=== PATIENT | male | born 1980 | race Caucasian/White ===

== ENCOUNTER 2016-06-28 19:11 | Emergency (ER) | payer MEDICAID ==
[~2016-06-28] VITALS: Ht 152.4 cm; Wt 66.7 kg
[2016-06-28 21:14] LABS: BASOPHIL % 0.3 % (0-2)
[2016-06-28 21:23] LABS: CALCIUM 9.3 mg/dL (8.5-10.1); CARBON DIOXIDE 29.9 mmol/L (21-32); CHLORIDE SERUM 100 mmol/L (98-107); CREATININE SERUM 0.9 mg/dL (0.7-1.3); GFR1 > 60 mL/min; GLUCOSE SERUM 124 mg/dL (74-106); POTASSIUM SERUM 3.3 mmol/L (3.5-5.1); SODIUM SERUM 139 mmol/L (136-145)
[2016-06-28 21:28] LABS: ALBUMIN 4.4 g/dL (3.4-5.0); ALKALINE PHOSPHATASE 98 U/L (46-116); ALT/SGPT 273 U/L (16-63); AST/SGOT 197 U/L (15-37); BILIRUBIN TOTAL 1.2 mg/dL (0.20-1.00); PLATELET COUNT 115 x10^3mcL (130-400)
[2016-06-28 21:29] LABS: TOTAL PROTEIN, SERUM 8.5 g/dL (6.4-8.2)
[2016-06-28 23:00] VITALS: BP 142/94
== END 2016-06-28 23:00 | disposition home or self-care (01) ==
LOC: ED 19:11 → EDBD 19:11 → ED 23:00
PROVIDERS: Emergency Medicine
DX: R51 Headache (principal); R53.1 Weakness
CPT/HCPCS: G0480; J2405; J3411; J3475; J3490; J7030; Q0092

== ENCOUNTER 2016-09-30 00:29 | Emergency (ER) | payer MEDICAID ==
[2016-09-30 01:44] LABS: RED CELL DISTRIBUTION WIDTH 14.3 % (11.5-14.5)
[2016-09-30 01:49] LABS: CALCIUM 8.9 mg/dL (8.5-10.1); CARBON DIOXIDE 23.6 mmol/L (21-32); CHLORIDE SERUM 105 mmol/L (98-107); CREATININE SERUM 0.7 mg/dL (0.7-1.3); GFR1 > 60 mL/min; GLUCOSE SERUM 123 mg/dL (74-106); POTASSIUM SERUM 3.4 mmol/L (3.5-5.1); SODIUM SERUM 142 mmol/L (136-145)
[2016-09-30 01:51] LABS: BASOPHIL % 0 % (0-2); PLATELET COUNT 88 x10^3mcL (130-400)
[2016-09-30 01:54] LABS: ALKALINE PHOSPHATASE 74 U/L (46-116); ALT/SGPT 114 U/L (16-63); AST/SGOT 86 U/L (15-37); BILIRUBIN TOTAL 0.75 mg/dL (0.20-1.00)
[2016-09-30 01:55] LABS: TOTAL PROTEIN, SERUM 8.3 g/dL (6.4-8.2)
[2016-09-30 04:30] VITALS: BP 129/77
== END 2016-09-30 04:30 | disposition home or self-care (01) ==
LOC: ED 00:29
PROVIDERS: Emergency Medicine
DX: F10.10 Alcohol abuse, uncomplicated (principal)
CPT/HCPCS: G0480; J2060; J2405; J3411; J3475; J3490; J7030

== ENCOUNTER 2017-03-01 02:51 | Emergency (ER) | payer MEDICAID ==
[~2017-03-01] VITALS: Ht 152.4 cm; Wt 63.5 kg
[2017-03-01 02:59] VITALS: Ht 152.4 cm; Wt 63.5 kg
[2017-03-01 04:06] VITALS: BP 145/93
== END 2017-03-01 04:06 | disposition home or self-care (01) ==
LOC: ED 02:51
DX: G44.209 Tension-type headache, unspecified, not intractable (principal); F10.129 Alcohol abuse with intoxication, unspecified
CPT/HCPCS: J1885; Q0162

== ENCOUNTER 2017-09-20 17:21 | Emergency (ER) | payer MEDICAID ==
[~2017-09-20] VITALS: Ht 152.4 cm; Wt 61.2 kg
[2017-09-20 17:24] VITALS: Ht 152.4 cm; Wt 61.2 kg
[2017-09-20 18:13] LABS: BASOPHIL % 0.5 % (0-2)
[2017-09-20 18:14] LABS: PLATELET COUNT 123 x10^3mcL (130-400); RED CELL DISTRIBUTION WIDTH 14.8 % (11.5-14.5)
[2017-09-20 18:38] LABS: CALCIUM 8.5 mg/dL (8.5-10.1); CARBON DIOXIDE 27.6 mmol/L (21-32); CHLORIDE SERUM 105 mmol/L (98-107); CREATININE SERUM 0.7 mg/dL (0.7-1.3); GFR1 > 60 mL/min; GLUCOSE SERUM 104 mg/dL (74-106); POTASSIUM SERUM 3.7 mmol/L (3.5-5.1); SODIUM SERUM 142 mmol/L (136-145)
[2017-09-20 18:43] LABS: ALKALINE PHOSPHATASE 71 U/L (46-116); ALT/SGPT 138 U/L (16-63); AST/SGOT 68 U/L (15-37); BILIRUBIN TOTAL 0.59 mg/dL (0.20-1.00); TOTAL PROTEIN, SERUM 7.9 g/dL (6.4-8.2)
[2017-09-20 20:28] VITALS: BP 123/75
== END 2017-09-20 20:28 | disposition home or self-care (01) ==
LOC: ED 17:21
PROVIDERS: Emergency Medicine
DX: G44.209 Tension-type headache, unspecified, not intractable (principal); F10.20 Alcohol dependence, uncomplicated
CPT/HCPCS: 36415; G0480; J1885; J8597

== ENCOUNTER 2018-02-10 05:29 | Emergency (ER) | payer MEDICAID ==
[~2018-02-10] VITALS: Ht 149.9 cm; Wt 60.8 kg
[2018-02-10 06:46] LABS: BASOPHIL % 0.2 % (0-2); RED CELL DISTRIBUTION WIDTH 12.6 % (11.5-14.5)
[2018-02-10 06:50] LABS: PLATELET COUNT 85 x10^3mcL (130-400)
[2018-02-10 07:00] LABS: CALCIUM 8.7 mg/dL (8.5-10.1); CARBON DIOXIDE 29.9 mmol/L (21-32); CHLORIDE SERUM 101 mmol/L (98-107); CREATININE SERUM 0.7 mg/dL (0.7-1.3); GFR1 > 60 mL/min; GLUCOSE SERUM 102 mg/dL (74-106); SODIUM SERUM 141 mmol/L (136-145)
[2018-02-10 11:11] VITALS: BP 140/75
== END 2018-02-10 11:11 | disposition home or self-care (01) ==
LOC: ED 05:29
PROVIDERS: Emergency Medicine
DX: R51 Headache (principal); R11.2 Nausea with vomiting, unspecified; F10.10 Alcohol abuse, uncomplicated
CPT/HCPCS: J1200; J1885; J2765; J3411; J3475; J3490; J7030

== ENCOUNTER 2018-03-15 01:27 | Inpatient (IN) | payer MEDICAID ==
[~2018-03-15] VITALS: Ht 167.6 cm; Wt 60.5 kg
[2018-03-15 01:32] VITALS: Ht 167.6 cm; Wt 60.5 kg
--- NOTE | 2018-03-15 01:38 | NUR ---
EKG IN PROGRESS
--- NOTE | 2018-03-15 02:15 | NUR ---
PT PRESENTS TO ER TODAY WITH C/O OF CHEST PAIN. PT STATES CP IS ON THE L SIDE OF HIS CHEST AND RATES IT 10/10. PT ALSO COMPLAINING OF DIZZINESS. PT DENIES AND SOB. PTS LUNG SOUNDS CLEAR BILATERALLY IN ALL LOBES ON ASCULTATION. PT MALAGASY SPEAKING ONLY. FAMILY AT BEDSIDE. NO ACUTE DISTRESS NOTED.
[2018-03-15 03:27] LABS: BASOPHIL % 0.4 % (0-2); RED CELL DISTRIBUTION WIDTH 13.4 % (11.5-14.5)
[2018-03-15 03:28] LABS: PLATELET COUNT 100 x10^3mcL (130-400)
--- NOTE | 2018-03-15 03:35 | NUR ---
PT APPEARS TO BE RESTING COMFORTABLY. PTS VITALS ARE WNL. NO ACUTE DISTRESS NOTED.
[2018-03-15 03:46] LABS: CALCIUM 8.7 mg/dL (8.5-10.1); CARBON DIOXIDE 29.7 mmol/L (21-32); CHLORIDE SERUM 104 mmol/L (98-107); CREATININE SERUM 0.8 mg/dL (0.7-1.3); GFR1 > 60 mL/min; GLUCOSE SERUM 126 mg/dL (74-106); POTASSIUM SERUM 3.8 mmol/L (3.5-5.1); SODIUM SERUM 140 mmol/L (136-145)
[2018-03-15 03:50] LABS: ALKALINE PHOSPHATASE 92 U/L (46-116); ALT/SGPT 35 U/L (16-63); AST/SGOT 19 U/L (15-37); BILIRUBIN TOTAL 0.46 mg/dL (0.20-1.00); TOTAL PROTEIN, SERUM 7.8 g/dL (6.4-8.2)
[2018-03-15 03:50] LABS: AMPHETAMINE QUAL UR NONE DETECTED (See below)
--- NOTE | 2018-03-15 04:31 | NUR ---
DR MOELLER AT BEDSIDE FOR MSE.
[2018-03-15 05:52] LABS: PHOSPHOROUS 3.7 mg/dL (2.5-4.9)
[2018-03-15 05:57] LABS: T3 TOTAL 0.98 ng/mL
[2018-03-15 06:00] LABS: FREE T4 0.95 ng/dL (0.76-1.46); FREE THYROXINE INDEX 2.9 ug/dL (1.4-4.5); T4(THYROXINE) 8.1 ug/dL (4.7-13.3)
--- NOTE | 2018-03-15 06:04 | NUR ---
REPORT GIVEN TO MARINA MOJICA TO ASSUME CARE OF PT.
--- NOTE | 2018-03-15 06:12 | NUR ---
PT APPEARS TO BE RESTING COMFORTABLY. PTS VITALS ARE WNL. PT IS NOT REPORTING ANY PAIN AT THIS TIME. NO ACUTE DISTRESS NOTED.
--- NOTE | 2018-03-15 07:05 | NUR ---
RCD REPORT FROM YUNIOR GRAY. PATIENT JUST ADMITTED TO THE UNIT AT 0700 WITH COMPLAINT OF CHEST PAIN, RCD ASPIRIN IN EMERGENCY DPT PER REPORT. PATIENT REPORTS HE HAS "POQUITO" CHEST PAIN WHILE PUSHING ON LEFT CHEST, BY REPORT WITH EXERTION. TELE 18, NSR, RATE IN 80s. DENIES SHORTNESS OF BREATH. O2 SAT 98% ON ROOM AIR. DENIES DIZZINESS, A/OX4. ORIENTED TO ROOM, CALL LIGHT, TELEVISION. DISCUSSED NEED TO USE CALL LIGHT TO COMMUNICATE NEEDS. PATIENT VERBALIZES AND DEMONSTRATES UNDERSTANDING. WILL MONITOR.
[2018-03-15 08:04] VITALS: BP 129/92
[2018-03-15 09:51] VITALS: BP 135/85
--- NOTE | 2018-03-15 09:56 | NUR ---
MEDICATIONS GIVEN PER MAR. PATIENT REFUSES COLACE HE HAD TWO BMs THIS MORNING. PATIENT REPORTS NO CHEST PAIN AT THIS TIME. FAMILY AT BEDSIDE. NO OTHER NEEDS AT THIS TIME.
[2018-03-15 10:25] LABS: microscopic required? NO
--- NOTE | 2018-03-15 11:05 | NUR ---
ROUNDS WITH DR. DEAN, MEDICAL TEAM, [facility] NURSE, ATTDG NURSE. PATIENT DENIES ANY FURTHER CHEST PAIN. EXPLAINED TO PATIENT NEED TO REPEAT BLOOD TEST FOR CARDIAC ENZYMES, IF NORMAL PATIENT MAY BE DISCHARGED HOME LATER TODAY. IF CHEST PAIN RETURNS AFTER DISCHARGE PATIENT TO SEEK CARDIOLOGY CARE OUTPATIENT. PATIENT AND VERBALIZE UNDERSTANDING.
[2018-03-15 11:19] LABS: UA SPECIFIC GRAVITY 1.015 (1.005-1.035); urine erythrocyte NEGATIVE (NEGATIVE)
[2018-03-15 12:19] VITALS: BP 109/70
--- NOTE | 2018-03-15 13:33 | NUR ---
PATIENT DENIES CHEST PAIN AT THIS TIME. NO NEEDS.
--- NOTE | 2018-03-15 14:50 | NUR ---
PATIENT ASLEEP, REGULAR RESPS. WILL MONITOR.
--- NOTE | 2018-03-15 16:31 | NUR ---
DR. DIXON IN TO DISCUSS WITH PATIENT AND PLAN FOR DISCHARGE TODAY. PATIENT DENIES ANY FURTHER CHEST PAIN AND IS FEELING WELL. DOCTOR EXPLAINED TO PATIENT THAT EKG IS NORMAL, CARDIAC ENZYMES ARE NORMAL AND THAT HIS CHEST PAIN DOES NOT APPEAR TO BE RELATED TO A PROBLEM WITH THE HEART. PATIENT'S MENTIONS THIS CHEST PAIN CAN OCCUR WHEN HE IS UPSET. DOCTOR RECOMMENDED PATIENT FOLLOW UP WITH PRIMARY CARE OUTPATIENT. PATIENT AND AGREED. ALL QUESTIONS ANSWERED. PLAN FOR DISCHARGE TODAY.
[2018-03-15 17:19] VITALS: BP 125/77
[2018-03-15 17:24] VITALS: BP 125/77
--- NOTE | 2018-03-15 17:44 | NUR ---
REVIEWED DISCHARGE PAPERWORK WITH PATIENT AND . VERBAL AND WRITTEN INSTRUCTIONS PROVIDED IN CUB[place] AND IN [place]UBA. IV TO LAC REMOVED, SITE WITHOUT COMPLICATIONS. TELE 18 REMOVED AND RETURNED TO TELEMETRY. PATIENT AND DENY HAVING ANY FURTHER QUESTIONS. PATIENT EATING DINNER. ADVISED TO CALL FOR ASSISTANCE WHEN READY TO LEAVE.
--- NOTE | 2018-03-15 17:49 | NUR ---
PATIENT ESCORTED FROM UNIT, AMBULATORY, WITH FAMILY, HAS ALL HIS BELONGINGS. NO DISTRESS NOTED, NO CHEST PAIN AT THIS TIME. REINFORCED TO PATIENT TO FOLLOWUP WITH PCP TOMORROW. PATIENT AGREES.
== END 2018-03-15 17:47 | disposition home or self-care (01) | DRG 243 ==
LOC: ED 01:27 → DU 05:00
PROVIDERS: Emergency Medicine; ADMIT Family Medicine
DX: K21.9 Gastro-esophageal reflux disease without esophagitis (principal); D69.6 Thrombocytopenia, unspecified; M94.0 Chondrocostal junction syndrome [Tietze]; Z68.25 Body mass index [BMI] 25.0-25.9, adult
CPT/HCPCS: 83880; 84439; 85378; G0480; Q0092

== ENCOUNTER 2018-08-02 21:53 | Emergency (ER) | payer MEDICAID ==
[~2018-08-02] VITALS: Ht 152.4 cm; Wt 61.7 kg
[2018-08-02 21:56] VITALS: Ht 152.4 cm; Wt 61.7 kg
[2018-08-03 00:25] LABS: BASOPHIL % 0.2 % (0-2); PLATELET COUNT 95 x10^3mcL (130-400); RED CELL DISTRIBUTION WIDTH 12.5 % (11.5-14.5)
[2018-08-03 00:49] LABS: CALCIUM 9.2 mg/dL (8.5-10.1); CARBON DIOXIDE 27.5 mmol/L (21-32); CHLORIDE SERUM 101 mmol/L (98-107); CREATININE SERUM 0.5 mg/dL (0.7-1.3); GFR1 > 60 mL/min; GLUCOSE SERUM 105 mg/dL (74-106); POTASSIUM SERUM 4.6 mmol/L (3.5-5.1); SODIUM SERUM 140 mmol/L (136-145)
[2018-08-03 00:54] LABS: ALBUMIN 4.1 g/dL (3.4-5.0); ALKALINE PHOSPHATASE 74 U/L (46-116); ALT/SGPT 77 U/L (16-63); AST/SGOT 65 U/L (15-37); BILIRUBIN TOTAL 0.94 mg/dL (0.20-1.00); TOTAL PROTEIN, SERUM 8.2 g/dL (6.4-8.2)
[2018-08-03 01:15] VITALS: BP 147/81
== END 2018-08-03 01:15 | disposition home or self-care (01) ==
LOC: ED 21:53
PROVIDERS: Emergency Medicine
DX: G44.209 Tension-type headache, unspecified, not intractable (principal); F10.20 Alcohol dependence, uncomplicated
CPT/HCPCS: 36415; J1885

== ENCOUNTER 2018-08-29 03:49 | Inpatient (IN) | payer MEDICAID ==
[~2018-08-29] VITALS: Ht 157.5 cm; Wt 59.4 kg
[2018-08-29 03:57] VITALS: Ht 157.5 cm; Wt 59.4 kg
--- NOTE | 2018-08-29 04:10 | NUR ---
PT PRESENTED TO ED FOR HEADACHE X 3 DAYS, NAUSEA AND VOMITING X 2 DAYS. PT FAMILY STATES "2 WEEKS OF DRINKING BEER" WITH LAST DRINK "AT 2 AM", +ETOH. PT IS CALM AND COOPERATIVE, FOLLOWS COMMANDS.PT OBSERVED RESTING COMFORTABLY ON GURNEY. CM AND [address]. PT AWAKE AND ALERT IN NAD. BREATHING EVEN AND UNLABORED. FAMILY AT BEDSIDE. AWAITING MSE. WILL CONTINUE TO MONITOR.
--- NOTE | 2018-08-29 04:19 | NUR ---
PT GIVEN URINAL AT BEDSIDE TO PROVIDE URINE SAMPLE.
--- NOTE | 2018-08-29 04:23 | NUR ---
PT UNABLE TO PROVIDE URINE AT THIS TIME.
[2018-08-29 04:33] LABS: BASOPHIL % 0.3 % (0-2); RED CELL DISTRIBUTION WIDTH 13.9 % (11.5-14.5)
[2018-08-29 04:34] LABS: PLATELET COUNT 123 x10^3mcL (130-400)
--- NOTE | 2018-08-29 04:35 | NUR ---
DR MOELLER AT BEDSIDE FOR MSE.
--- NOTE | 2018-08-29 04:45 | NUR ---
OBSERVED BILATERAL LEG TREMORS AT BEDSIDE. DR MOELLER MADE AWARE. PER DR MOELLER GIVE 1 MG ATIVAN IVP AT THIS TIME. PT MEDICATED PER MD ORDERS. SEE EMAR FOR DETAILS. WILL CONTINUE TO MONITOR.
[2018-08-29 04:52] LABS: CALCIUM 8.7 mg/dL (8.5-10.1); CARBON DIOXIDE 27.8 mmol/L (21-32); CHLORIDE SERUM 107 mmol/L (98-107); CREATININE SERUM 0.7 mg/dL (0.7-1.3); GFR1 > 60 mL/min; GLUCOSE SERUM 114 mg/dL (74-106); POTASSIUM SERUM 4.2 mmol/L (3.5-5.1); SODIUM SERUM 147 mmol/L (136-145)
[2018-08-29 05:05] LABS: ALBUMIN 4.2 g/dL (3.4-5.0); ALKALINE PHOSPHATASE 79 U/L (46-116); ALT/SGPT 100 U/L (16-63); AST/SGOT 57 U/L (15-37); BILIRUBIN TOTAL 0.75 mg/dL (0.20-1.00); FREE T4 0.96 ng/dL (0.76-1.46); LIPASE 235 IU/L (73-393); TOTAL PROTEIN, SERUM 8.1 g/dL (6.4-8.2)
--- NOTE | 2018-08-29 05:41 | NUR ---
PT RESTING ON GURNEY IN NAD. BREATHING EVEN AND UNLABORED. PT EASILY AROUSABLE. ASKED PT TO PROVIDE URINE SAMPLE AT THIS TIME AND PT STATED "NO". DR MOELLER MADE AWARE. CM AND [address] FAMILY AT BEDSIDE. WILL CONTINUE TO MONITOR.
--- NOTE | 2018-08-29 05:48 | NUR ---
XRAY AT BEDSIDE.
--- NOTE | 2018-08-29 06:08 | NUR ---
REPORT CALLED TO DUONG MOJICA.
--- NOTE | 2018-08-29 06:15 | NUR ---
PT TRANSFERED TO BED 251B AT THIS TIME. PT APPEARS SLEEPY BUT EASILY AROUSABLE . PT IN NAD. BREATHING EVEN AND UNLABORED. PT TRANSFERED VIA GURNEY ACCOMPANIED BY MYSELF RN AND CLEM EMT. IV REMAINS PATENT WITH NO SIGNS OF INFILTRATION.
[2018-08-29 06:26] VITALS: BP 120/78
--- NOTE | 2018-08-29 06:29 | NUR ---
RECEIVED PT FROM ED. PT AOX4. DENIES DEL TORO/DIZZINESS AT THIS TIME. PLACED ON TELE #32, SR WITH BBB. DENIES CP/PRESSURE. IV TO RAC, INTACT AND PATENT. BED IN LOWEST POSITION. CALL LIGHT WITHIN REACH. WILL CONTINUE TO MONITOR.
[2018-08-29 06:42] LABS: MAGNESIUM 2.1 mg/dL (1.8-2.4); PHOSPHOROUS 4.4 mg/dL (2.5-4.9)
[2018-08-29 06:54] LABS: CHOLESTEROL/HDL RATIO 2.2
[2018-08-29 06:55] LABS: microscopic required? YES; urine erythrocyte NEGATIVE (NEGATIVE)
--- NOTE | 2018-08-29 07:10 | NUR ---
RECEIVED BEDSIDE REPORT FROM WET MACHINE TENDER NURSE AT THIS TIME. PATIENT RESTING COMFORTABLY IN BED. NO APPARENT DISTRESS OR DISCOMFORT NOTED. BREATHING EVEN AND UNLABORED. PATIENT DENIES SHORTNESS OF BREATH. PATIENT DENIES CHEST PAIN/PRESSURE. NO APPARENT DISTRESS OR DISCOMFORT. ALL QUESTIONS AND CONCERNS ADDRESSED. ALL NEEDS ATTENDED TO SZ PRECAUTIONS IN PLACE FOR SAFETY. WILL CONTINUE TO MONITOR
[2018-08-29 08:13] LABS: AMPHETAMINE QUAL UR NONE DETECTED (See below)
--- NOTE | 2018-08-29 08:30 | NUR ---
REPORT TO PHYSICIAN PRESIDENT WENDY PATIENT LACTIC ACID 2.7 AT THIS TIME. PER PHYSICIAN PRESIDENT SHE WILL INPUT ORDERS. AWAITING ORDERS AT THIS TIME. WILL PROCEED ORDERED. WILL CONTINUE TO MONITOR
[2018-08-29 09:28] VITALS: BP 136/80
--- NOTE | 2018-08-29 10:20 | NUR ---
ALL MORNING MEDICATIONS ADMINISTERED. PATIENT TOLERATED MEDICATION WELL. NO ADVERSE EFFECTS NOTED. ALL NEEDS ATTENDED TO. WILL CONTINUE TO MONITOR
--- NOTE | 2018-08-29 10:32 | NUR ---
SPOKE TO RON NGUYEN REGARDING DUPLICATE ORDER FOR LACTIC ACID. PER WENDY TELEPHONE ORDER TO D/C DUPLICATE LACTIC ORDER. TELEPHONE ORDER READ BACK, CONFIRMED, AND FOLLOWED THROUGH. ALL NEEDS ATTENDED TO. WILL CONTINUE TO MONITOR
--- NOTE | 2018-08-29 10:56 | NUR ---
PATIENT C/O 5/10 HEADACHE AT THIS TIME. MEDICATED WITH TYLENOL PRN. PATIENT TOLERATED WELL. NO APPARENT DISTRESS OR DISCOMFORT NOTED. ALL NEEDS ATTENDED TO. WILL CONTINUE TO MONITOR
--- NOTE | 2018-08-29 11:11 | NUR ---
SPOKE TO COMMERCIAL LINES MANAGER WENDY AT THIS TIME TO REPORT PATIENT LACTIC ACID 2.4. NO NEW ORDERS. ALL NEEDS ATTENDED TO. WILL CONTINUE TO MONITOR
--- NOTE | 2018-08-29 11:34 | NUR ---
PATIENT C/O BEING ANXIOUS AT THIS TIME. MEDICATED WITH ATIVAN PRN. PATIENT TOLERATED WELL. NO APPARENT DISTRESS OR DISCOMFORT NOTED. ALL NEEDS ATTENDED TO. WILL CONTINUE TO MONITOR
[2018-08-29 13:01] VITALS: BP 117/66
[2018-08-29 16:48] VITALS: BP 125/72
--- NOTE | 2018-08-29 17:05 | NUR ---
Discount pharmacy card and list to low cost medical clinics given to patient by July Zamora.
--- NOTE | 2018-08-29 18:06 | NUR ---
PATIENT C/O 5/10 HEADACHE AT THIS TIME. PATIENT MEDICATED WITH NORCO PRN. PATIENT TOLERATED WELL. NO ADVERSE EFFECT NOTED. ALL NEEDS ATTENDED TO. WILL CONTINUE TO MONITOR
--- NOTE | 2018-08-29 19:13 | NUR ---
PATIENT RESTING COMFORTABLY IN BED AT THIS TIME. NO APPARENT DISTRESS OR DISCOMFORT NOTED. IV TO THE PATENT AND INTACT. ALL QUESTIONS AND CONCERNS ADDRESSED. SAFETY PRECAUTIONS MAINTAINED. ALL NEEDS ATTENDED TO. WILL ENDORSE ALL CARE TO GLASS CARRIER NURSE
--- NOTE | 2018-08-29 20:17 | NUR ---
PT. AWAKE, ALERT, ORIENTED X4. STATED THAT HE IS VERY SLEEPY. ABLE TO FOLLOW COMMANDS. SPEECH SLOW BUT CLEAR. CONVERSATION APPROPRIATE.BREATH SOUNDS CLEAR THROUGHOUT LUNG SIDHU, RESP. EVEN, UNLABORED. NO SOB NOTED. PT. ON RA. NSR ON TELE #32. DENIES CHESTPAIN OR DISCOMFORT. NO EDEMA NOTED TO EXTREMITIES. FACE APPEARS FLUSHED AND SLIGHTLY RED. ABD. SOFT AND ROUND, BOWEL SOUNDS ACTIVE. IVF INFUSING WELL, SITE WNL. BED LOW LAYING, ALARM ON. PT. INSTRUCTED TO CALL FOR ASSIST OOB. REPORTED C/O DIZZINESS EARLIER TODAY.
[2018-08-29 20:57] VITALS: BP 138/77
--- NOTE | 2018-08-30 01:14 | NUR ---
PT. RESTING QUIETLY, EYES CLOSED. APPEARS TO BE SLEEPING. NO SEIZURE ACTIVITY OR HALLUCINATIONS NOTED THUS FAR. IVF INFUSING WELL. CALL LIGHT WITHIN REACH.
[2018-08-30 05:49] VITALS: BP 142/90
[2018-08-30 06:29] LABS: BASOPHIL % 0.3 % (0-2); RED CELL DISTRIBUTION WIDTH 13.5 % (11.5-14.5)
--- NOTE | 2018-08-30 06:29 | NUR ---
PT. C/O HEADACHE EARLIER THIS MORNING AFTER 0400. RECEIVED PRN TYLENOL AND STATED RELIEF. DENIES ANY DIZZINESS AT THIS TIME. NO SEIZURE ACTIVITIES THROUGHOUT THE NIGHT OR HALLUCINATIONS. PT. REMAINS COOPERATIVE. IVF INFUSING WELL, SITE INTACT. CALL LIGHT WITHIN REACH. WILL ENDORSE PT. CARE TO INCOMING NURSE.
[2018-08-30 06:31] LABS: CALCIUM 8.6 mg/dL (8.5-10.1); CARBON DIOXIDE 32.9 mmol/L (21-32); CHLORIDE SERUM 102 mmol/L (98-107); CREATININE SERUM 0.6 mg/dL (0.7-1.3); GFR1 > 60 mL/min; GLUCOSE SERUM 109 mg/dL (74-106); MAGNESIUM 2.1 mg/dL (1.8-2.4); PHOSPHOROUS 3.5 mg/dL (2.5-4.9); POTASSIUM SERUM 3.7 mmol/L (3.5-5.1); SODIUM SERUM 140 mmol/L (136-145)
[2018-08-30 06:50] LABS: PLATELET COUNT 104 x10^3mcL (130-400)
--- NOTE | 2018-08-30 07:10 | NUR ---
RECEIVED PT FROM VOCATIONAL AIDE. PT AWAKE, ALERT. A/OX4. PT ON ROOM AIR WITH NO RESP DISTRESS NOTED. LUNGS CTA. IV ACCESS RAC C/D/I INFUSING D51/2NS AT 125ML/HR. PERIPHERAL PULSES PALPABLE, NO EDEMA NOTED. PT COMPLAINS OF DIZZINESS. DENIES PAIN AT THIS TIME. PT ON TELE #32, DENIES CHEST PAIN. PT NOTED TO HAVE GENERALIZED WEAKNESS. SEIZURE PRECAUTIONS. SAFETY MESAURES IN PLACE, BED LOW AND LOCKED. PT INSTRUCTED TO USE CALL LIGHT FOR ASSISTANCE.
[2018-08-30 08:52] VITALS: BP 139/83
--- NOTE | 2018-08-30 10:30 | NUR ---
NO ACUTE DISTRESS OR DISCOMFORT NOTED AT THIS TIME. VSS
[2018-08-30 12:44] VITALS: BP 128/83
--- NOTE | 2018-08-30 13:43 | NUR ---
PT RESTING WITH NO DISCOMFORT NOTED. PT DENIES DIZZINESS AT THIS TIME. ALL NEEDS MET. SAFETY MEASURES MAINTAINED.
--- NOTE | 2018-08-30 17:00 | NUR ---
PT RESTING IN BED. DENIES DIZZINESS, NAUSEA OR PAIN AT THIS TIME. ALL NEEDS MET. SAFETY MAINTAINED. CALL LIGHT WITHIN REACH.
[2018-08-30 17:01] VITALS: BP 124/84
--- NOTE | 2018-08-30 18:47 | NUR ---
PT STABLE AT THIS TIME. ALL NEEDS TENDED TO THROUGHOUT SHIFT. NO ACUTE DISTRESS OR DISCOMFORT NOTED AT THIS TIME. WILL CONTINUE TO MONITOR AND ENDORSE CARE TO ACCOUNT MANAGER EMPLOYEE BENEFITS.
--- NOTE | 2018-08-30 19:35 | NUR ---
PT. AWAKE, ALERT, ORIENTED X4. DENIES HEADACHE OR DIZZINESS. BREATH SOUNDS CLEAR THROUGHOUT LUNG SIDHU. RESP. EVEN, UNLABORED. NO SOB NOTED. PT. ON RA. ABD. SOFT AND ROUND, BOWEL SOUNDS ACTIVE. PT. ON SEIZURE/ETOH PRECAUTION. NO EDEMA NOTED TO EXTREMITIES. PEDAL PULSES STRONG MIRA. IVF D5 1/2 INFUSING WELL AT 125CC/HR, SITE INTACT. PT. NSR ON MONITOR 32. CALL LIGHT WITHIN REACH.
[2018-08-30 21:11] VITALS: BP 131/82
--- NOTE | 2018-08-31 01:38 | NUR ---
PT. SLEEPING AT THIS TIME. NO SEIZURE ACTIVITY NOTED THUS FAR. NO NOTED TREMORS THUS FAR. IVF INFUSING WELL. CALL LIGHT WITHIN REACH.
[2018-08-31 05:32] VITALS: BP 124/75
[2018-08-31 06:30] LABS: CALCIUM 9.1 mg/dL (8.5-10.1); CARBON DIOXIDE 30.7 mmol/L (21-32); CHLORIDE SERUM 103 mmol/L (98-107); CREATININE SERUM 0.8 mg/dL (0.7-1.3); GFR1 > 60 mL/min; GLUCOSE SERUM 99 mg/dL (74-106); SODIUM SERUM 141 mmol/L (136-145)
[2018-08-31 06:33] LABS: BASOPHIL % 0.2 % (0-2); RED CELL DISTRIBUTION WIDTH 13.7 % (11.5-14.5)
--- NOTE | 2018-08-31 06:33 | NUR ---
PT. AWAKE, SITTING UP IN BED. HAD UNEVENTFUL NIGHT. BUT C/O HEADACHE THIS MORNING. PRN TYLENOL GIVEN ORDERED. NO SEIZURE ACTIVITY OR TREMORS NOTED THROUGHOUT THE NIGHT. IVF INFUSING WELL. CALL LIGHT WITHIN REACH. WILL ENDORSE PT. CARE TO INCOMING NURSE.
[2018-08-31 06:38] LABS: PLATELET COUNT 85 x10^3mcL (130-400)
--- NOTE | 2018-08-31 07:06 | NUR ---
RECEIVED PT FROM RAILROAD WORKER NURSE. PT RESTING IN BED, AOX4, RESP E/U ON RA. NO ACUTE DISTRESS NOTED. ON TELE 32 SHOWING NSR, HR: 67. IV TO RAC W/ NO SIGNS OF INFILTRATION, IVF INFUSING WELL. BED IN LOWEST POSITION AND CALL LIGHT WITHIN REACH. WILL CONTINUE TO MONITOR.
[2018-08-31 09:01] VITALS: BP 106/68
[2018-08-31 11:10] VITALS: BP 106/68
--- NOTE | 2018-08-31 12:50 | NUR ---
PT DISHCARGED, REVIEWED VISIT SUMMARY AND EDUCATIONAL PACKET W/ PT. PT AOX4, RESP E/U ON RA, VS STABLE, DENIES PAIN, HEADACHE, DIZZINESS OR N/V. IV REMOVED, CATH INTACT, GAUZE DRESSING APPLIED. PT AMBULATORY TO DISCHARGE OFFICE ESCORTED BY CHELSEA HINES W/ NO ACUTE INCIDENCE.
== END 2018-08-31 12:48 | disposition home or self-care (01) | DRG 775 ==
LOC: ED 03:49 → DU 05:10
PROVIDERS: Emergency Medicine; General Practice; ADMIT Internal Medicine
DX: F10.239 Alcohol dependence with withdrawal, unspecified (principal); F10.229 Alcohol dependence with intoxication, unspecified; E44.0 Moderate protein-calorie malnutrition; N39.0 Urinary tract infection, site not specified
CPT/HCPCS: 84439; G0378; G0480; J2060; J2543; J3370; J7030; Q0092

== ENCOUNTER 2018-09-18 12:17 | Emergency (ER) | payer MEDICAID ==
[~2018-09-18] VITALS: Ht 157.5 cm; Wt 59.9 kg
[2018-09-18 12:28] VITALS: Ht 157.5 cm; Wt 59.9 kg
[2018-09-18 14:02] VITALS: BP 110/70
== END 2018-09-18 14:03 | disposition home or self-care (01) ==
LOC: ED 12:17
DX: R51 Headache (principal); R42 Dizziness and giddiness; F10.20 Alcohol dependence, uncomplicated; Y90.0 Blood alcohol level of less than 20 mg/100 ml
CPT/HCPCS: J8597

== ENCOUNTER 2018-09-18 22:46 | Emergency (ER) | payer MEDICAID ==
[~2018-09-18] VITALS: Ht 152.4 cm; Wt 59.4 kg
[2018-09-18 22:51] VITALS: Ht 152.4 cm; Wt 59.4 kg
[2018-09-19 00:52] LABS: BASOPHIL % 0.3 % (0-2); PLATELET COUNT 139 x10^3mcL (130-400); RED CELL DISTRIBUTION WIDTH 14.2 % (11.5-14.5)
[2018-09-19 01:14] LABS: CALCIUM 9.4 mg/dL (8.5-10.1); CARBON DIOXIDE 27.8 mmol/L (21-32); CHLORIDE SERUM 99 mmol/L (98-107); CREATININE SERUM 0.5 mg/dL (0.7-1.3); GFR1 > 60 mL/min; GLUCOSE SERUM 103 mg/dL (74-106); POTASSIUM SERUM 4.4 mmol/L (3.5-5.1); SODIUM SERUM 137 mmol/L (136-145)
[2018-09-19 01:32] LABS: ALBUMIN 4.3 g/dL (3.4-5.0); ALKALINE PHOSPHATASE 78 U/L (46-116); ALT/SGPT 51 U/L (16-63); AST/SGOT 28 U/L (15-37); BILIRUBIN TOTAL 1.95 mg/dL (0.20-1.00); LIPASE 149 IU/L (73-393); MAGNESIUM 2.4 mg/dL (1.8-2.4); T4(THYROXINE) 6.9 ug/dL (4.7-13.3)
[2018-09-19 01:33] LABS: CHOLESTEROL 218 mg/dL (<200); HDL CHOLESTEROL 97 mg/dL (40-60); TOTAL PROTEIN, SERUM 8.3 g/dL (6.4-8.2)
[2018-09-19 02:41] LABS: microscopic required? YES; urine erythrocyte TRACE (NEGATIVE)
[2018-09-19 02:42] VITALS: BP 139/85
[2018-09-19 02:49] LABS: AMPHETAMINE QUAL UR POSITIVE (See below)
== END 2018-09-19 02:42 | disposition home or self-care (01) ==
LOC: ED 22:46
PROVIDERS: Emergency Medicine
DX: R51 Headache (principal); H11.003 Unspecified pterygium of eye, bilateral; I45.10 Unspecified right bundle-branch block; F10.10 Alcohol abuse, uncomplicated; R11.0 Nausea
CPT/HCPCS: 82962; G0480; J3411; J3475; J3490; J7042; Q0092

== ENCOUNTER 2018-10-14 16:22 | Emergency (ER) | payer MEDICAID ==
[~2018-10-14] VITALS: Ht 152.4 cm; Wt 58.5 kg
[2018-10-14 16:36] VITALS: Ht 152.4 cm; Wt 58.5 kg
[2018-10-14 19:19] LABS: BASOPHIL % 0.2 % (0-2); PLATELET COUNT 87 x10^3mcL (130-400)
[2018-10-14 19:25] LABS: ALBUMIN 4.4 g/dL (3.4-5.0); ALKALINE PHOSPHATASE 80 U/L (46-116); ALT/SGPT 102 U/L (16-63); AST/SGOT 85 U/L (15-37); BILIRUBIN TOTAL 1.87 mg/dL (0.20-1.00); CALCIUM 9.3 mg/dL (8.5-10.1); CARBON DIOXIDE 28.2 mmol/L (21-32); CHLORIDE SERUM 98 mmol/L (98-107); CREATININE SERUM 0.7 mg/dL (0.7-1.3); GFR1 > 60 mL/min; GLUCOSE SERUM 101 mg/dL (74-106); MAGNESIUM 2.1 mg/dL (1.8-2.4); POTASSIUM SERUM 3.7 mmol/L (3.5-5.1); SODIUM SERUM 137 mmol/L (136-145)
[2018-10-14 19:29] LABS: TOTAL PROTEIN, SERUM 8.6 g/dL (6.4-8.2)
[2018-10-14 19:56] LABS: AMPHETAMINE QUAL UR NONE DETECTED (See below)
[2018-10-14 21:41] VITALS: BP 120/71
[2018-10-18 13:05] LABS: VITAMIN B1 (THIAMINE) 107.1 nmol/L (66.5-200.0)
== END 2018-10-14 21:41 | disposition home or self-care (01) ==
LOC: ED 16:22
PROVIDERS: Emergency Medicine
DX: F10.239 Alcohol dependence with withdrawal, unspecified (principal); K70.10 Alcoholic hepatitis without ascites; Y90.0 Blood alcohol level of less than 20 mg/100 ml
CPT/HCPCS: 36415; 84425; G0480; J2060